=== PATIENT | male | born 1995 | race Caucasian/White ===

== ENCOUNTER 2017-02-22 19:53 | Emergency (ER) | payer OTHER ==
[~2017-02-22] VITALS: Ht 175.3 cm; Wt 93.4 kg
[~2017-02-22 19:53] MED LIST: ADVAIR 2501 DISK W/D PO; ALBUTEROL0.83 MG/ML INH; ALBUTEROL17 GM INH; ALBUTEROL17 GM NEB; ALLEGRA ALLERG180 MG PO; BELSOMRA10 MG PO; BENZONATATE PO; BENZTROPINE MESY2 MG PO; CELEXA10 MG PO; CLEOCIN PO; CLINDAMYCIN HCL1 GM; COGENTIN; COGENTIN PO; COGENTIN2 MG PO; DEPAKOTE (UD)250 M1 DOB; DEPAKOTE ER PO; FLONASE ALLERG9.9 ML; GEODAN PO; GEODON20 MG PO; GEODON80 MG PO; LITHIUM CARBON600 MG; LITHIUM CARBON600 MG PO; LITHOBID SR300 MG DOB; MINIPRESS1 MG PO; NEURONTIN PO; PRAZOSIN HCL2 MG PO; PREDNISONE PO; PRILOSEC20 MG PO; PROAIR HFA8.5 GM IH; SINGULAIR PO; VIBRAMYCIN100 M1 DOB; ZOFRAN PO; ZYRTEC10 M2 PO
== END 2017-02-22 21:51 | disposition home or self-care (01) ==
LOC: SED 19:53
DX: J44.1 Chronic obstructive pulmonary disease with (acute) exacerbation (principal); F31.9 Bipolar disorder, unspecified; F41.9 Anxiety disorder, unspecified; Z88.5 Allergy status to narcotic agent; Z88.1 Allergy status to other antibiotic agents; Z79.899 Other long term (current) drug therapy
CPT/HCPCS: 94640; 96372; 99283; J2930